=== PATIENT | female | born 1965 | race Two or more races ===

== ENCOUNTER → 2017-02-03 | Outpatient (CLI) | payer MEDICARE, MEDICAID ==
[~2017-02-03] MED LIST: CLONAZEPAM0.125 MG PO; GLUCOPHAGE500 MG PO; MINOCIN50 MG PO; PREMPRO 0.3 MG1 EACH PO; REPATHA PU420 MG/3.5 SUBCUT; ZYRTEC10 MG PO; [UNRECOGNIZED DRUG - REMARK] NASBOTH
== END | disposition short-term general hospital (02) ==
LOC: CLORTH 08:29
DX: S46.012A Strain of muscle(s) and tendon(s) of the rotator cuff of left shoulder, initial encounter (principal); M19.012 Primary osteoarthritis, left shoulder

== ENCOUNTER 2017-03-05 18:51 | Emergency (ER) | payer MEDICARE, MEDICAID ==
[~2017-03-05] VITALS: Ht 154.9 cm; Wt 69.9 kg
[~2017-03-05 18:51] MED LIST changes: -MINOCIN50 MG PO; -REPATHA PU420 MG/3.5 SUBCUT
== END 2017-03-05 19:26 | disposition short-term general hospital (02) ==
LOC: ER 18:51
DX: G89.18 Other acute postprocedural pain (principal); M25.512 Pain in left shoulder; E11.9 Type 2 diabetes mellitus without complications; Z79.84 Long term (current) use of oral hypoglycemic drugs; Z79.899 Other long term (current) drug therapy; Z88.8 Allergy status to other drugs, medicaments and biological substances
CPT/HCPCS: J2765

== ENCOUNTER → 2017-03-17 | Outpatient (CLI) | payer MEDICARE, MEDICAID ==
[~2017-03-17] MED LIST changes: +MINOCIN50 MG PO; +REPATHA PU420 MG/3.5 SUBCUT
== END | disposition short-term general hospital (02) ==
LOC: CLORTH 10:51
DX: Z48.89 Encounter for other specified surgical aftercare (principal); Z98.890 Other specified postprocedural states

== ENCOUNTER → 2017-04-14 | Outpatient (CLI) | payer MEDICARE, MEDICAID | END | disposition short-term general hospital (02) | LOC: CLORTH 04:55 | DX: S43.422D Sprain of left rotator cuff capsule, subsequent encounter (principal) ==

== ENCOUNTER 2017-07-25 13:59 | Emergency (ER) | payer MEDICARE, MEDICAID ==
[~2017-07-25] VITALS: Ht 154.9 cm; Wt 69.8 kg
[~2017-07-25 13:59] MED LIST changes: -MINOCIN50 MG PO; -REPATHA PU420 MG/3.5 SUBCUT
[2017-07-25] MEDS ORDERED: REPATHA PU420 MG/3.5 SUBCUT (14:39)
[2017-07-25] MEDS ORDERED: MINOCIN50 MG PO (14:40)
== END 2017-07-25 15:28 | disposition short-term general hospital (02) ==
LOC: ER 13:59
DX: R07.89 Other chest pain (principal); E11.9 Type 2 diabetes mellitus without complications; E78.5 Hyperlipidemia, unspecified; K21.9 Gastro-esophageal reflux disease without esophagitis; M19.90 Unspecified osteoarthritis, unspecified site; F32.9 Major depressive disorder, single episode, unspecified; E55.9 Vitamin D deficiency, unspecified; G25.81 Restless legs syndrome; Z87.891 Personal history of nicotine dependence; Z79.84 Long term (current) use of oral hypoglycemic drugs; Z79.2 Long term (current) use of antibiotics; Z79.899 Other long term (current) drug therapy; Z88.8 Allergy status to other drugs, medicaments and biological substances; Z98.1 Arthrodesis status; Z98.890 Other specified postprocedural states
CPT/HCPCS: J1885